=== PATIENT | female | born 1950 | race Caucasian/White ===

== ENCOUNTER 2024-02-05 09:48 | Outpatient (RCR) | payer OTHER, SELFPAY ==
[2024-02-05 10:00] VITALS: BP 114/58
[2024-02-05] MEDS: RECLAST 100 IV (10:24)
[2024-02-05 11:02] VITALS: BP 110/55
== END 2024-02-06 08:37 | disposition home or self-care (01) ==
LOC: OID 09:48
PROVIDERS: ATTENDING PHYSICIAN Nurse Practitioner Primary Care
DX: M81.0 Age-related osteoporosis without current pathological fracture (principal)
CPT/HCPCS: 96365; J3489

== ENCOUNTER → 2024-02-24 13:52 | Outpatient (REF) | payer OTHER, SELFPAY | LOC: HWWDC 13:52 | PROVIDERS: ATTENDING PHYSICIAN Nurse Practitioner Primary Care | DX: Z12.31 Encounter for screening mammogram for malignant neoplasm of breast (principal); Z13.820 Encounter for screening for osteoporosis; Z78.0 Asymptomatic menopausal state; M81.0 Age-related osteoporosis without current pathological fracture | CPT/HCPCS: 77063; 77067; 77080 ==

== ENCOUNTER 2025-02-10 12:51 | Outpatient (RCR) | payer OTHER, SELFPAY ==
[2025-02-10 13:00] VITALS: BP 122/81
[2025-02-10] MEDS: RECLAST 100 IV (13:10)
== END 2025-02-11 08:40 | disposition home or self-care (01) ==
LOC: OID 12:51
PROVIDERS: ATTENDING PHYSICIAN Nurse Practitioner Primary Care
DX: M81.0 Age-related osteoporosis without current pathological fracture (principal)
CPT/HCPCS: 96365; J3489

== ENCOUNTER → 2025-07-26 09:01 | Outpatient (REF) | payer OTHER, SELFPAY | LOC: HWWDC 09:01 | PROVIDERS: ATTENDING PHYSICIAN Nurse Practitioner Primary Care | DX: Z12.31 Encounter for screening mammogram for malignant neoplasm of breast (principal) | CPT/HCPCS: 77063; 77067 ==